=== PATIENT | male | born 2000 | race Caucasian/White ===

== ENCOUNTER 2022-08-08 09:18 | Emergency (ER) | payer OTHER ==
[~2022-08-08] VITALS: Ht 170.2 cm; Wt 78.0 kg
[2022-08-08 11:48] LABS: BASO % 0.2 % (0.0-1.0); EOS # 0.1 10^3/uL (0.0-0.5); HEMATOCRIT 42.8 % (42.0-52.0); HEMOGLOBIN 14.8 g/dl (13.5-17.5); LYMPH # 2.2 10^3/uL (1.5-5.0); LYMPH % 18.1 % (24.0-44.0); MEAN CORPUSCULAR HEMOGLOBIN 30.1 pg (27.0-33.0); MEAN CORPUSCULAR HGB CONC 34.6 g/dl (32.0-36.5); MONO # 0.9 10^3/uL (0.0-0.8); MONO % 7.1 % (2.0-8.0); NEUTROPHILS % 73.3 % (36.0-66.0); PLATELET COUNT, AUTOMATED 212 10^3/uL (150-450); RED BLOOD COUNT 4.92 10^6/uL (4.30-6.10); WHITE BLOOD COUNT 12.3 10^3/uL (4.0-10.0)
[2022-08-08] MEDS ORDERED: KETOROLAC 30 MG/ML 1ML VIAL IV ONE (12:05)
[2022-08-08] MEDS ORDERED: ONDANSETRON 4MG 2ML VIAL IV ONE (12:05)
[2022-08-08] MEDS ORDERED: NS 1,000 ML IV ONE (12:05)
[2022-08-08 12:08] LABS: LIPASE 37 U/L (12-53)
[2022-08-08 12:10] LABS: AMYLASE 56 U/L (30-118)
[2022-08-08 12:11] LABS: ALBUMIN 4.4 G/DL (3.2-5.2); ALKALINE PHOSPHATASE 84 U/L (46-116); ALT/SGPT 21 U/L (7.0-40); AST/SGOT 22 U/L (<34); BILIRUBIN,DIRECT 0.3 MG/DL (<0.4); BILIRUBIN,TOTAL 0.8 MG/DL (0.3-1.2); BLOOD UREA NITROGEN 15 MG/DL (9-23); CALCIUM LEVEL 8.6 MG/DL (8.5-10.1); CARBON DIOXIDE LEVEL 26 MMOL/L (20-31); CHLORIDE LEVEL 106 MMOL/L (98-107); CREATININE FOR GFR 0.97 MG/DL (0.70-1.30); GLUCOSE, FASTING 89 MG/DL (60-100); POTASSIUM SERUM 4.5 MMOL/L (3.5-5.1); SODIUM LEVEL 138 MMOL/L (136-145)
[2022-08-08] MEDS ORDERED: ISOVUE-370 76% 100ML VIAL As Ordered ONE (12:23)
[2022-08-08 13:21] VITALS: BP 116/65; TEMP 96.3; O2SAT 100
[2022-08-08] MEDS ORDERED: DICY10CA13 PO (14:08)
== END 2022-08-08 14:19 | disposition home or self-care (01) ==
LOC: M ED 09:18
DX: R10.31 Right lower quadrant pain (principal); K92.1 Melena; Z79.899 Other long term (current) drug therapy
CPT/HCPCS: 74177; 80048; 80076; 82150; 83605; 83690; 85025; 96361; 96374; 99283; J1885; J2405; Q9967

== ENCOUNTER → 2022-10-27 | Outpatient (CLI) | payer OTHER ==
[~2022-10-27] MED LIST: DICY-61 PO; GASTROGRAFIN SOLUTION 30ML As Ordered ONE; ISOVUE-370 76% 100ML VIAL As Ordered ONE
== END ==
LOC: M RAD 07:34
PROVIDERS: ATTEND Internal Medicine Gastroenterology
DX: R93.3 Abnormal findings on diagnostic imaging of other parts of digestive tract (principal); Q64.4 Malformation of urachus
CPT/HCPCS: 74178; Q9963; Q9967

== ENCOUNTER 2022-11-20 08:59 | Day surgery (SDC) | payer OTHER ==
[~2022-11-20] VITALS: Ht 170.2 cm; Wt 83.8 kg
[~2022-11-20 08:59] MED LIST changes: -GASTROGRAFIN SOLUTION 30ML As Ordered ONE; +IBUP1TAB6 PO; -ISOVUE-370 76% 100ML VIAL As Ordered ONE; +NS 1,000 ML IV ONE
[2022-11-20 11:50] VITALS: TEMP 97.6
[2022-11-20 12:05] VITALS: BP 103/53; O2SAT 96
== END 2022-11-20 12:20 | disposition home or self-care (01) ==
LOC: M OPP 08:59
PROVIDERS: ATTEND Internal Medicine Gastroenterology
DX: K64.8 Other hemorrhoids (principal); R93.3 Abnormal findings on diagnostic imaging of other parts of digestive tract; R10.33 Periumbilical pain; Z87.891 Personal history of nicotine dependence; Z79.1 Long term (current) use of non-steroidal anti-inflammatories (NSAID)